=== PATIENT | female | born 1935 | race Caucasian/White ===

== ENCOUNTER → 2017-03-11 | Outpatient (CLI) | payer MEDICARE ==
[~2017-03-11] VITALS: Ht 165.1 cm; Wt 61.2 kg
[~2017-03-11] MED LIST: AMINOPHYLLINE IV ONE; LEXISCAN IV ONE
== END | disposition home or self-care (01) ==
LOC: NM 10:02
PROVIDERS: ATTEND Internal Medicine
DX: I35.0 Nonrheumatic aortic (valve) stenosis (principal)
CPT/HCPCS: 78452; 93017; 93307; A9500; J0280; J2785

== ENCOUNTER 2017-04-29 00:37 | Day surgery (SDC) | payer MEDICARE ==
[2017-04-28 10:37] VITALS: BP 145/75
[2017-04-28 11:06] LABS: BASOPHIL % 0.4 % (0.0-0.2); EOSINOPHIL # 0.2 10^3/uL (0.0-0.2); EOSINOPHIL % 3.1 % (0.0-5.0); LYMPHOCYTES # 1.5 10^3/uL (1.0-4.8); LYMPHOCYTES % 21.5 % (24.0-44.0); MEAN CELL HGB 28.8 pg (26-34); MEAN CELL HGB CONCENTRATION 32.7 g/dL (33-37); MEAN CORP VOLUME 88.2 fL (78-100); MEAN PLATELET VOLUME 9.3 fL (7.8-11.0); MONOCYTES # 0.6 10^3/uL (0.3-0.8); MONOCYTES % 9.5 % (5.0-12.0); NEUTROPHIL # 4.4 10^3/uL (1.8-7.7); NEUTROPHILS % 64.9 % (41.0-85.0); RED CELL DISTRIBUTION WIDTH 14.2 % (11.5-14.5); WHITE BLOOD CELL 6.7 10^3/uL (4.5-11.0)
[2017-04-28 11:16] LABS: CALCIUM 9.3 mg/dL (8.4-10.5); CARBON DIOXIDE 25.1 mmol/L (20.0-32)
--- NOTE | 2017-04-28 11:16 | DIREP ---
PROCEDURE:CHEST 2 VIEWS COMPARISON:None. INDICATIONS:PRE-OP HEART CATH FINDINGS: LUNGS/PLEURA:There is pulmonary hyperinflation consistent with underlying COPD. No focal consolidation. No effusions. VASCULATURE:Normal. Unremarkable pulmonary vasculature. CARDIAC:Normal. No cardiac silhouette abnormality or cardiomegaly. MEDIASTINUM:Normal. No visible mass or adenopathy. BONES:Normal. No fracture or visible bony lesion. OTHER:Negative. CONCLUSION: Emphysema. No active cardiopulmonary disease process Dictated by: Darien Domínguez M.D. on 04/28/2017 at 10:13 AM Read in [place]
[2017-04-29] VITALS (12 sets, daily range): BP systolic 140–181; BP diastolic 62–90
[~2017-04-29] VITALS: Ht 165.1 cm; Wt 61.2 kg
[~2017-04-29 00:37] MED LIST changes: -AMINOPHYLLINE IV ONE; +ASPI-484 PO; +CALC-115 PO; +FERR240T2 PO; +GUAI600T23 PO; +HYDR25TA9 PO; +LEVO112T5 PO; -LEXISCAN IV ONE; +OMEG1CAP2 PO
[2017-04-29] MEDS ORDERED: VERSED ONE (06:11)
[2017-04-29] MEDS ORDERED: SUBLIMAZE ONE (06:11)
[2017-04-29] MEDS ORDERED: XYLOCAINE ONE (06:11)
[2017-04-29] MEDS ORDERED: NS 1000ML 1,000 ML ONE ×2 (06:11→06:12)
[2017-04-29] MEDS ORDERED: CALAN ONE (06:11)
[2017-04-29] MEDS ORDERED: CETACAINE SPRAY TP ONE (06:11)
[2017-04-29] MEDS ORDERED: HEPARIN ONE (06:11)
[2017-04-29] MEDS ORDERED: NITROGLYCERIN 25MG/D5W 250ML 250 ML IV ONE (06:11)
[2017-04-29] MEDS ORDERED: BENADRYL PO ONE ×2 (08:30→08:58)
[2017-04-29] MEDS ORDERED: NS FLUSH ONE (10:23)
--- NOTE | 2017-04-29 20:37 | [facility] ---
DATE OF SERVICE: 04/29/2017 PROCEDURES PERFORMED: 1. Left heart catheterization via right radial artery access. 2. Selective coronary angiography, left and right. 3. Left ventricular end-diastolic pressure measurement. 4. Left ventriculography. 5. Aortogram ascending and descending. COMPLICATIONS: None. BLOOD LOSS: Minimal, less than 25 mL. INDICATIONS: 1. Abnormal stress test on 03/11/2017 with a small anterior wall perfusion defect. 2. Significant valvular cardiomyopathy including aortic regurgitation for which the severity will be estimated with a transesophageal echocardiogram. 3. Symptoms of progressive shortness of breath and decreased functional capacity. HISTORY OF PRESENT ILLNESS: The patient is an 81-year-old lady who reports worsening shortness of breath, decreased functional capacity and occasional angina, stress test performed on 03/11/2017 as an outpatient showed anterior wall medium size defect. The patient's echocardiographic study showed aortic lesion of insufficiency that needed to be further estimated. Therefore, she was elected to perform transesophageal echocardiogram and coronary angiography as an outpatient on 04/29/2017. Unfortunately, the transesophageal echocardiographic study probe was malfunctioning this morning; therefore, the EL was cancelled and aortogram was recommended to further evaluate the aortic lesion with regurgitation using aortogram according to protocol. DESCRIPTION OF PROCEDURE: The patient signed proper consent. The procedure was explained in details, received conscious sedation. Lab results were reviewed and allergies verified. Right wrist area was prepped and draped and sterilized and 1% lidocaine was used for local analgesia. A 6[place] sheath in the right radial artery was advanced without difficulty. A 6[place] catheter was utilized to engage left and right coronary arteries for selective coronary angiography. This was followed by an exchange over the guidewire for a pigtail catheter to be advanced across the aortic valve into the LV cavity for LVEDP measurement and power injection LV gram in the MEEK projection. The pigtail catheter was then retrieved into the ascending aorta and using left oblique projection, the aortogram was performed successfully and the case was concluded with removal of the wires and catheters and application of TR band in the right radial artery access site for hemostasis. I have educated the patient and her on the results of both procedures. The patient left the Signing Agent in a stable condition without complication. She was in stable condition. HEMODYNAMICS: 1. Opening pressure of 138/67, mean of 95 mmHg. 2. Closing pressure of 152/74 mmHg. 3. LVEDP was around 10 mmHg. 4. LV gram showed an EF of 60%. No significant wall motion abnormality. 5. A gradient of less than 3 mm across the aortic valve was noted. 6. Ascending aorta was minimally dilated, maximum dimension was 3.6 cm. 7. Minimal calcification noted at the arch of the aorta. Descending aorta was free of aneurysm or dissection. 8. Aortogram was performed that showed mild degree of aortic regurgitation. 9. Both iliac arteries were patent. ANGIOGRAPHIC FINDINGS: 1. The right coronary artery is a dominant vessel, medium in size, seems to be starting from the noncoronary aortic cusp more toward the left side. No disease was noted, distally bifurcates into a dominant RPDA and PLV branches. The RPDA was free of disease, dominant vessel. The PLV showed diffuse disease around 50% in a small vessel, no obstructive lesion in the RCA itself. 2. The left main is a short vessel, superior takeoff, free of disease, minimally calcified. 3. LAD is tortuous vessel, free of disease, normal in diameter with TIMI3 flow. The diagonal branches were small size vessels without significant disease. The circumflex artery is a nondominant vessel, starts as a normal size vessel with minimal calcification, no obstruction. It terminates into a small nondominant vessel, gives rise to a large obtuse marginal branch, which is very tortuous, free of disease with multiple branches. IMPRESSION: 1. No obstructive coronary artery disease was noted. 2. Short left main with superior takeoff. 3. 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 4. Preserved EF around 60%. 5. +1 MR. 6. Mild aortic regurgitation. 7. Mildly dilated ascending aorta without aneurysm or dissection. 8. Mild aortic regurgitation +1 9. No aneurysm or dissection in the abdominal aorta. 10. The procedure was well tolerated. RECOMMENDATIONS: 1. TR band protocol. 2. Same day discharge. 3. Optimize medical management for secondary prevention of coronary artery disease. 4. Management of other comorbidities. 5. Outpatient followup once the patient meets discharge criteria. Angel Rudd MD DR: BASILIO/real JOB# [id number]
== END 2017-04-29 14:20 | disposition home or self-care (01) | DRG 307 ==
LOC: SDC 00:37
PROVIDERS: ATTEND Internal Medicine
DX: I35.2 Nonrheumatic aortic (valve) stenosis with insufficiency (principal); I25.118 Atherosclerotic heart disease of native coronary artery with other forms of angina pectoris; I42.8 Other cardiomyopathies; I10 Essential (primary) hypertension; Z85.3 Personal history of malignant neoplasm of breast; Z90.710 Acquired absence of both cervix and uterus; Z90.12 Acquired absence of left breast and nipple; Z72.89 Other problems related to lifestyle; F15.90 Other stimulant use, unspecified, uncomplicated; Z79.899 Other long term (current) drug therapy
CPT/HCPCS: 36415; 71020; 80048; 85025; 85610; 93458; 99152; 99153; C1769; C1887; C1894; J1644; J2250; J3010; J3490; J7030; Q0163; Q9967; 93567

== ENCOUNTER → 2017-06-10 | Outpatient (CLI) | payer MEDICARE | END | disposition home or self-care (01) | LOC: RAD 14:36 | PROVIDERS: ATTEND Internal Medicine | DX: I73.9 Peripheral vascular disease, unspecified (principal); R93.1 Abnormal findings on diagnostic imaging of heart and coronary circulation | CPT/HCPCS: 93970 ==